=== PATIENT | male | born 1960 | race Hispanic/Latino ===

== ENCOUNTER 2018-09-23 11:36 | Outpatient (CLI) | payer BC ==
--- NOTE | 2018-09-23 16:06 | MRI ---
MRI CERVICAL SPINE WITHOUT CONTRAST: HISTORY: Left hand weakness. Loss of muscle in arm. COMPARISON: None. TECHNIQUE: An MRI of the cervical spine is performed without intravenous Gadolinium administration. Multisequen tial, multiplanar imaging is performed. FINDINGS: Straightening of normal cervical lordosis. Vertebral body height is maintained. No fracture. No si gnificant STIR hyperintensity to suggest vertebral body edema or ligamentous injury. The visualized brain parenchyma, cervicomedullary junction, cervical cord, and upper thoracic cord bowman ve normal size and signal intensity. C2-C3: No significant central canal stenosis or neural foraminal narrowing. C3-C4: There is a broad-based disk bulge with a left subarticular component. The thecal sac is flat tened but the subarachnoid space is maintained. Mild central canal stenosis. Degenerative changes i n the bilateral uncovertebral joints result in moderate bilateral foraminal narrowing. C4-C5: No significant central canal stenosis. Moderate to severe right foraminal narrowing due to d egenerative change of the uncovertebral joint. The left neural foramen is patent. C5-C6: No significant disk osteophyte complex. No significant central canal stenosis. The neural f oramina are patent. C6-C7: Broad-based disk osteophyte complex abuts the thecal sac. Mild central canal stenosis. Dege nerative changes in the bilateral uncovertebral joints results in moderate bilateral foraminal narrow ing. C7-T1: No significant central canal stenosis. The neural foramina are patent. IMPRESSION: Degenerative changes of the cervical spine, as detailed above. POS: [facility]
== END 2018-09-23 11:37 | disposition home or self-care (01) ==
LOC: MRI 11:36
PROVIDERS: ATTEND Family Medicine
DX: M47.22 Other spondylosis with radiculopathy, cervical region (principal)
CPT/HCPCS: 72141